=== PATIENT | male | born 1945 | race Caucasian/White ===

== ENCOUNTER 2018-10-12 12:15 | Emergency (ER) | payer OTHER ==
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
[2018-10-12 12:43] VITALS: BP 149/69; PULSE 79; TEMP 98.1; BMI 43.1
[2018-10-12] MEDS ORDERED: ACETAMINOPHEN 1000 MG/100 ML VIAL (NON FORMULARY) IVPB ONE (13:04)
[2018-10-12] MEDS ORDERED: ACETAMINOPHEN INJECTION 100 ML IVPB ONE (13:28)
[2018-10-12 13:30] LABS: BASO % 1.3 % (0-2.0); HEMATOCRIT 41.8 % (35.4-49); HEMOGLOBIN 13.5 GM/dL (11.7-16.9); LYMPH % 37.2 % (8-40); MCH 28.2 pg (25.7-33.7); MCHC 32.2 g/dl (32.0-35.9); MEAN CELL VOLUME 87.3 fl (80-96); MEAN PLT VOLUME 10.2 fl (7.5-11.1); MONO % 10.4 % (3.8-10.2); NEUT % 47.1 % (42.8-82.8); PLATELET COUNT 149 K/MM3 (134-434); RBC 4.79 M/mm3 (4.00-5.60); WHITE BLOOD COUNT 7.2 K/mm3 (4.0-10.0)
[2018-10-12 14:01] LABS: ALBUMIN 3.5 g/dl (3.4-5.0); ALK PHOS 100 U/L (45-117); ANION GAP 8 MMOL/L (8-16); BILIRUBIN,TOTAL 0.6 mg/dL (0.2-1); BLOOD UREA NITROGEN 24 mg/dL (7-18); CALCIUM 9.3 mg/dL (8.5-10.1); CHLORIDE 98 mmol/L (98-107); CO2 29 mmol/L (21-32); CREATININE 1.3 mg/dL (0.55-1.3); GLUCOSE,RANDOM 253 mg/dL (74-106); POTASSIUM 3.8 mmol/L (3.5-5.1); SGOT/AST 21 U/L (15-37); SGPT/ALT 26 U/L (13-61); SODIUM 134 mmol/L (136-145); TOT PROT 7.7 g/dl (6.4-8.2)
[2018-10-12] MEDS ORDERED: METHOCARBAMOL 500 MG TABLET PO ONE (15:56)
[2018-10-12] MEDS ORDERED: IBUPROFEN 400 MG TABLET (FP) PO ONE ×2 (15:57→16:28)
[2018-10-12] MEDS ORDERED: METHOCARBAMOL 500 MG TABLET ONE (16:27)
== END 2018-10-12 18:33 ==
LOC: JER 12:15
PROC: 3E033NZ Introduction of Analgesics, Hypnotics, Sedatives into Peripheral Vein, Percutaneous Approach (ICD-10-PCS; principal; 2018-10-12)
DX: M54.6 Pain in thoracic spine (principal); M54.5 Low back pain; V69.59XA Passenger in heavy transport vehicle injured in collision with other motor vehicles in traffic accident, initial encounter; Y92.414 Local residential or business street as the place of occurrence of the external cause; Y93.89 Activity, other specified; Y99.8 Other external cause status; I10 Essential (primary) hypertension; E78.5 Hyperlipidemia, unspecified; E11.9 Type 2 diabetes mellitus without complications; Z79.4 Long term (current) use of insulin; N40.0 Benign prostatic hyperplasia without lower urinary tract symptoms; M51.35 Other intervertebral disc degeneration, thoracolumbar region; M50.90 Cervical disc disorder, unspecified, unspecified cervical region
CPT/HCPCS: 36415; 72125-TC; 72128-TC; 72131-TC; 80053; 85025; 99282-25; J0131

== ENCOUNTER 2023-04-26 15:43 | Inpatient (IN) | payer OTHER ==
[2023-04-26] MEDS ORDERED: SODIUM CHLORIDE 1,000 ML IV SCH (15:45)
[2023-04-26 15:59] VITALS: BMI 51.0
[2023-04-26 16:27] LABS: BASO % 0.9 % (0-2.0); EOS % 1.7 % (0-4.5); HEMATOCRIT 44.2 % (35.4-49); HEMOGLOBIN 14.9 GM/dL (11.7-16.9); LYMPH % 25.2 % (8-40); MCH 28.3 pg (25.7-33.7); MCHC 33.6 g/dl (32.0-35.9); MEAN CELL VOLUME 84.3 fl (80-96); MEAN PLT VOLUME 9.5 fl (7.5-11.1); MONO % 8.1 % (3.8-10.2); NEUT % 64.1 % (42.8-82.8); PLATELET COUNT 144 10^3/uL (134-434); RBC 5.24 M/mm3 (4.00-5.60); RDW 14.1 % (11.9-15.9); WHITE BLOOD COUNT 10.3 K/mm3 (4.0-10.0)
[2023-04-26 16:30] LABS: INR 1.18 (0.83-1.09); PROTHROMBIN TIME (PATIENT) 13.7 SEC (9.7-13.0)
[2023-04-26 16:33] LABS: ACTIVATED PTT 40.1 SECONDS (25.2-36.5)
[2023-04-26 16:44] LABS: CHLORIDE 104 mmol/L (98-107); POTASSIUM 4.3 mmol/L (3.5-5.1); SODIUM 140 mmol/L (136-145)
[2023-04-26 16:45] LABS: CALCIUM 9.5 mg/dL (8.5-10.1)
[2023-04-26 16:46] LABS: ALBUMIN 2.8 g/dl (3.4-5.0); ANION GAP 9 MMOL/L (8-16); CO2 27 mmol/L (21-32)
[2023-04-26 16:47] LABS: BLOOD UREA NITROGEN 19.9 mg/dL (7-18); GLUCOSE,RANDOM 166 mg/dL (74-106)
[2023-04-26 16:49] LABS: SGOT/AST 19 U/L (15-37); SGPT/ALT 13 U/L (13-61)
[2023-04-26 16:51] LABS: CHOLESTEROL 131 mg/dL (50-200); TOT PROT 7.6 g/dl (6.4-8.2)
[2023-04-26 16:52] LABS: BILIRUBIN,TOTAL 1.4 mg/dL (0.2-1); LDL CHOLESTEROL (ONLY SJRH) 73 mg/dL (5-100)
[2023-04-26 16:53] LABS: ALK PHOS 120 U/L (45-117); HDL CHOLESTEROL 38 mg/dL (40-60)
[2023-04-26] MEDS ORDERED: ASPIRIN 81 MG CHEWABLE TABLETS PO ONE (17:20)
[2023-04-26] MEDS ORDERED: ATORVASTATIN CA 80 MG TABLET (FP) PO ONE (17:21)
[2023-04-26] MEDS ORDERED: ASPIRIN 300 MG SUPP.RECT RC ONE ×2 (17:25→18:04)
[2023-04-26] MEDS: SODIUM CHLORIDE 1,000 ML IV SCH (21:04)
[2023-04-27 01:31] LABS: EPI CELLS 15 /uL (0-25.1); HYALINE CASTS 1 /uL (0-3.1); PH,URINE 5.5 (5.0-8.0); URINE APPEARANCE CLOUDY; URINE BACTERIA 16 /uL (0-1359); URINE BILIRUBIN NEGATIVE (NEGATIVE); URINE COLOR YELLOW; URINE GLUCOSE (UA) NEGATIVE (NEGATIVE); URINE KETONE NEGATIVE (NEGATIVE); URINE LEUK ESTERASE 2+ (NEGATIVE); URINE NITRITE NEGATIVE (NEGATIVE); URINE PROTEIN 2+ (NEGATIVE); URINE RBC 72 /uL (0-23.9); URINE UROBILINOGEN 0.2 mg/dL (0.2-1.0); URINE WBC 3578 /uL (0-25.8)
[2023-04-27] MEDS: SODIUM CHLORIDE 1,000 ML IV SCH (06:38)
[2023-04-27 07:00] LABS: YEAST MANY (NEGATIVE)
[2023-04-27 09:07] LABS: BASO % 1.2 % (0-2.0); EOS % 3.5 % (0-4.5); HEMATOCRIT 42.8 % (35.4-49); HEMOGLOBIN 14.3 GM/dL (11.7-16.9); MCH 28.3 pg (25.7-33.7); MCHC 33.5 g/dl (32.0-35.9); MEAN CELL VOLUME 84.5 fl (80-96); MEAN PLT VOLUME 9.4 fl (7.5-11.1); MONO % 7.7 % (3.8-10.2); NEUT % 53.6 % (42.8-82.8); PLATELET COUNT 124 10^3/uL (134-434); RBC 5.07 M/mm3 (4.00-5.60); RDW 14.2 % (11.9-15.9); WHITE BLOOD COUNT 8.3 K/mm3 (4.0-10.0)
[2023-04-27 09:30] LABS: POTASSIUM 4.1 mmol/L (3.5-5.1)
[2023-04-27 09:34] LABS: CALCIUM 8.9 mg/dL (8.5-10.1)
[2023-04-27 09:35] LABS: ALBUMIN 2.7 g/dl (3.4-5.0); BLOOD UREA NITROGEN 17.7 mg/dL (7-18)
[2023-04-27 09:37] LABS: CREATININE 0.8 mg/dL (0.55-1.3)
[2023-04-27 09:39] LABS: TOT PROT 7.1 g/dl (6.4-8.2)
[2023-04-27] MEDS ORDERED: ENOXAPARIN NA (PORCINE) 40 MG/0.4 ML DISP.SYRIN SQ SCH (10:00)
[2023-04-27] MEDS ORDERED: ASPIRIN 81 MG CHEWABLE TABLETS PO SCH (10:00)
[2023-04-27] MEDS ORDERED: INSULIN (NOVOLOG) ASPART 100 UNITS/ML 10ML VIAL ONE ×2 (12:14→18:00)
[2023-04-27] MEDS: INSULIN (NOVOLOG) ASPART 100 UNITS/ML 10ML VIAL SQ SCH ×4 (12:30→22:32)
[2023-04-27] MEDS ORDERED: CLOPIDOGREL BISULFATE 75 MG TABLET (FP) PO SCH (12:45)
[2023-04-27] MEDS ORDERED: SODIUM CHLORIDE 1,000 ML IV SCH (12:45)
[2023-04-27] MEDS: CEFTRIAXONE 1 GM in DEXTROSE 5%-WATER - 50 ML IVPB SCH (13:17)
[2023-04-27] MEDS ORDERED: ATORVASTATIN CA 80 MG TABLET (FP) PO SCH ×2 (22:00)
[2023-04-28] MEDS ORDERED: INSULIN (LEVEMIR) 100 UNITS/ML UNITS SQ ONE (03:27)
[2023-04-28] MEDS ORDERED: INSULIN (NOVOLOG) ASPART 100 UNITS/ML 10ML VIAL ONE (03:27)
[2023-04-28] MEDS: INSULIN (NOVOLOG) ASPART 100 UNITS/ML 10ML VIAL SQ SCH (06:01)
[2023-04-28] MEDS ORDERED: INSULIN (LEVEMIR) 100 UNITS/ML UNITS SQ SCH (07:00)
[2023-04-28] MEDS ORDERED: ENOXAPARIN NA (PORCINE) 40 MG/0.4 ML DISP.SYRIN SQ SCH (08:00)
[2023-04-28] MEDS ORDERED: ASPIRIN 81 MG CHEWABLE TABLETS PO SCH (08:05)
[2023-04-28] MEDS ORDERED: HEPARIN NA (PORCINE) 5,000 UNITS/ML 1ML VIAL IVPUSH PRN ×2 (08:08)
[2023-04-28] MEDS ORDERED: HEPARIN NA (PORCINE) 5,000 UNITS/ML 1ML VIAL IVPUSH ONE (08:08)
[2023-04-28] MEDS ORDERED: HEPARIN INFUSION - 25,000 UNITS/500 ML INFUS.BAG IVPB SCH (08:15)
[2023-04-28 08:33] VITALS: BP 113/55; PULSE 82; RESP 20; TEMP 98.8
[2023-04-28 08:44] LABS: BASO % 1.1 % (0-2.0); EOS % 4.3 % (0-4.5); HEMATOCRIT 43.7 % (35.4-49); HEMOGLOBIN 14.4 GM/dL (11.7-16.9); LYMPH % 29.1 % (8-40); MCH 28.2 pg (25.7-33.7); MCHC 32.9 g/dl (32.0-35.9); MEAN CELL VOLUME 85.7 fl (80-96); MONO % 9.8 % (3.8-10.2); NEUT % 55.7 % (42.8-82.8); PLATELET COUNT 125 10^3/uL (134-434); RDW 14.1 % (11.9-15.9)
[2023-04-28 08:52] LABS: CALCIUM 9.2 mg/dL (8.5-10.1)
[2023-04-28 08:53] LABS: ALBUMIN 2.8 g/dl (3.4-5.0); BLOOD UREA NITROGEN 11.8 mg/dL (7-18); MAGNESIUM 1.2 mg/dL (1.8-2.4)
[2023-04-28 08:55] LABS: CREATININE 0.9 mg/dL (0.55-1.3); PHOSPHOROUS 2.7 mg/dL (2.5-4.9)
[2023-04-28 08:57] LABS: BILIRUBIN,TOTAL 0.9 mg/dL (0.2-1); TOT PROT 7.3 g/dl (6.4-8.2)
[2023-04-28] MEDS: CEFTRIAXONE 1 GM in DEXTROSE 5%-WATER - 50 ML IVPB SCH (11:22)
== END 2023-04-28 10:02 | disposition short-term general hospital (02) | DRG 64 ==
LOC: JER 15:43 → JERBED 18:05 → J4W 04-27 00:04
PROVIDERS: ADMIT Internal Medicine; ATTEND Internal Medicine
DX: I63.9 Cerebral infarction, unspecified (principal); I26.99 Other pulmonary embolism without acute cor pulmonale; G81.94 Hemiplegia, unspecified affecting left nondominant side; N39.0 Urinary tract infection, site not specified; G20 Parkinson's disease; R47.01 Aphasia; E11.9 Type 2 diabetes mellitus without complications; I10 Essential (primary) hypertension; I44.1 Atrioventricular block, second degree; I51.3 Intracardiac thrombosis, not elsewhere classified
CPT/HCPCS: 0241U-QW; 36415; 70450-TC; 70496-TC; 70498-TC; 70551-TC; 71045-TC-FY; 71275-TC; 80053; 80061; 81003; 82550; 82962; 83036; 83735; 84100; 84443; 84484; 85025; 85610; 85730; 86850; 86900; 86901; 87086; 93005; 93010; 93306-TC; 97161-GP; 99285-25; Q9967